=== PATIENT | male | born 1940 | race Caucasian/White ===

== ENCOUNTER → 2017-06-25 | Outpatient (CLI) | payer OTHER | LOC: RAD 10:49 | DX: J98.4 Other disorders of lung (principal); M25.78 Osteophyte, vertebrae; R09.89 Other specified symptoms and signs involving the circulatory and respiratory systems; Z87.81 Personal history of (healed) traumatic fracture ==

== ENCOUNTER → 2017-07-11 | Outpatient (CLI) | payer OTHER | LOC: RAD 12:09 | DX: R05 Cough (principal) ==

== ENCOUNTER → 2017-10-15 | Outpatient (CLI) | payer OTHER | LOC: RAD 15:20 | DX: M50.323 Other cervical disc degeneration at C6-C7 level (principal); M48.02 Spinal stenosis, cervical region; M85.88 Other specified disorders of bone density and structure, other site; G89.29 Other chronic pain ==

== ENCOUNTER → 2018-11-25 | Outpatient (CLI) | payer OTHER ==
--- NOTE | 2018-11-25 11:42 | 2DMMODE ---
[facility] [place] [place] [address] 2 D/M-MODE ECHOCARDIOGRAM Name: FRANTZ GOFF Room #: REG [facility]#: [id number] ������������� Admission: 11/25/18 ������������� Attend Phys: Taj Hutchinson, Discharge: ��� ������������� ��� Date of : 40 Date of Service: 11/25/18 1142 �� Report #: [id number] �������� ��������������������������������������������[id number] THIS REPORT FOR: //name// APPROVED REPORT Study performed: 11/25/2018 09:17:32 EXAM: Comprehensive 2D, Doppler, and color-flow Echocardiogram Patient Location: Echo lab Status: routine BSA: 2.37 HR: 62 bpm BP: 152/75 mmHg Rhythm: NSR Other Information Study Quality: Adequate Technically limited study due to body habitus. Indications Murmur Hypertension/HDD 2D Dimensions RVDd: 42.23 mm IVSd: 12.90 (7-11mm) LVOT Diam: 19.77 (18-24mm) LVDd: 48.50 mm PWd: 14.13 (7-11mm) Ascending Ao: 33.29 (22-36mm) LVDs: 34.49 (25-40mm) Aortic Root: 35.62 mm Volumes Left Atrial Volume (Systole) Single Plane 4CH: 64.64 mL Single Plane 2CH: 99.51 mL LA ESV Index: 39.00 mL/m2 Aortic Valve AoV Peak Benjamin.: 1.69 m/s AO Peak Gr.: 12.89 mmHg LVOT Max P.74 mmHg LVOT Max V: 1.09 m/s DOMI Vmax: 1.98 cm2 Mitral Valve [facility] [address] [place] [address] 2 D/M-MODE ECHOCARDIOGRAM Name: FRANTZ GOFF Room #: REG CL [facility]#: [id number] ������������� Admission: 11/25/18 ������������� Attend Phys: Taj Hutchinson, Discharge: ��� ������������� ��� Date of : 40 Date of Service: 11/25/18 1142 �� Report #: [id number] �������� ��������������������������������������������[id number] E/A Ratio: 0.8 MV Decel. Time: 257.36 ms MV E Max Benjamin.: 0.99 m/s MV A Benjamin.: 1.19 m/s MV PHT: 74.63 ms IVRT: 115.34 ms Pulmonary Valve PV Peak Benjamin.: 1.07 m/s PV Peak Gr.: 4.57 mmHg Pulmonary Vein P Vein S: 0.67 m/s P Vein A: 0.32 m/s P Vein D: 0.33 m/s P Vein A Dur.: 106.1 msec P Vein S/D Ratio: 2.03 Left Ventricle The left ventricle is normal size. Mild concentric left ventricular hypertrophy. The left ventricular systolic function is normal. The left ventricular ejection fraction is within the normal range. LVEF is 55%. Mild diastolic dysfunction is present (impaired relaxation pattern). Right Ventricle Right ventricle is mildly dilated. The right ventricular systolic function is normal. Atria Left atrium is at the upper limits of normal. Right atrium is mildly dilated. Aortic Valve Mild aortic valve sclerosis. Trace aortic regurgitation. There is no aortic valvular stenosis. Mitral Valve Mild mitral annular calcification. Mild mitral regurgitation. No evidence of mitral valve stenosis. Tricuspid Valve The tricuspid valve is normal in structure. Trace tricuspid regurgitation. Unable to assess PA pressure. Pulmonic Valve The pulmonary valve is normal in structure. Trace to mild pulmonic regurgitation. [facility] [place] [address] 2 D/M-MODE ECHOCARDIOGRAM Name: FRANTZ GOFF Room #: REG [facility]#: [id number] ������������� Admission: 11/25/18 ������������� Attend Phys: Taj Hutchinson, Discharge: ��� ������������� ��� Date of : 40 Date of Service: 11/25/18 1142 �� Report #: [id number] �������� ��������������������������������������������[id number] Great Vessels The aortic root is normal in size. IVC is not visualized. Pericardium There is no pericardial effusion. <Conclusion> The left ventricle is normal size. Mild concentric left ventricular hypertrophy. LVEF is 55%. Mild diastolic dysfunction is present (impaired relaxation pattern). Right ventricle is mildly dilated. Left atrium is at the upper limits of normal. Right atrium is mildly dilated. Mild aortic valve sclerosis. Trace aortic regurgitation. Mild mitral regurgitation. Trace tricuspid regurgitation. Unable to assess PA pressure. The aortic root is normal in size. There is no pericardial effusion. ��������������������������������������������� <ELECTRONICALLY SIGNED> ���������������������������������������� By: Boyd Dobson MD, FACC ��������������������������������������������� 11/25/18 1142 1142 1142 Boyd Dobson MD, FACC /INF
== END ==
LOC: CV 07:21
DX: I08.8 Other rheumatic multiple valve diseases (principal); I10 Essential (primary) hypertension; Z88.0 Allergy status to penicillin; Z88.2 Allergy status to sulfonamides; Z88.8 Allergy status to other drugs, medicaments and biological substances

== ENCOUNTER → 2019-07-07 | Outpatient (CLI) | payer OTHER | LOC: CAT 07:55 | DX: K63.5 Polyp of colon (principal); R63.4 Abnormal weight loss; R19.7 Diarrhea, unspecified; M47.816 Spondylosis without myelopathy or radiculopathy, lumbar region ==

== ENCOUNTER → 2019-08-19 | Outpatient (CLI) | payer OTHER ==
[~2019-08-19] MED LIST: ATORVASTATIN CA80 MG PO; BENICAR20 MG PO; CARBIDOPA-LEVO1 EAC9 PO; FLUTICASONE PRO30 G1 TOP; PROSCAR 5MG TABL5 M1 PO
== END ==
LOC: SJCVCIMAG 08-18 09:18 → NUC 08-18 10:29 → SJCVCIMAG 08-18 11:07
DX: Z01.818 Encounter for other preprocedural examination (principal); I73.9 Peripheral vascular disease, unspecified; R09.89 Other specified symptoms and signs involving the circulatory and respiratory systems; E78.00 Pure hypercholesterolemia, unspecified; E11.9 Type 2 diabetes mellitus without complications; E78.5 Hyperlipidemia, unspecified; Z82.49 Family history of ischemic heart disease and other diseases of the circulatory system; Z87.891 Personal history of nicotine dependence

== ENCOUNTER → 2019-08-21 | Outpatient (CLI) | payer OTHER | LOC: SJCVC 14:14 | DX: I25.10 Atherosclerotic heart disease of native coronary artery without angina pectoris (principal); I10 Essential (primary) hypertension; G20 Parkinson's disease; E11.9 Type 2 diabetes mellitus without complications; E78.00 Pure hypercholesterolemia, unspecified; G47.33 Obstructive sleep apnea (adult) (pediatric); Z79.899 Other long term (current) drug therapy; Z87.891 Personal history of nicotine dependence ==

== ENCOUNTER → 2019-08-22 | Outpatient (CLI) | payer OTHER ==
[~2019-08-22] VITALS: Ht 185.4 cm; Wt 103.0 kg
--- NOTE | ~2019-08-22 | EKG ---
[facility] [place] [address] ELECTROCARDIOGRAM REPORT Name: FRANTZ GOFF [id number] Admission: 08/22/19 Attend Phys: Eliceo Carbajal MD, Discharge: Date of : 40 Report #: [id number] THIS REPORT FOR: cc: Taj Hutchinson MD, Neal A. MD Epiphany, Epiphany MD ~ THIS REPORT FOR: //name// [facility] Test Date: 2019-08-22 Test Time: 07:28:15 Pat Name: FRANTZ GOFF Department: Room: Gender: Supervisor Records Change: Dorcas GRESHAM : 1940 Requested By: Boyd Dobson Order Number: [id number] MD: Measurements Intervals [place] Rate: 82 P: 37 MD: 168 QRS: 27 QRSD: 103 T: 90 QT: 377 QTc: 441 Interpretive Statements Sinus rhythm Atrial premature complex Inferior infarct, old Lateral leads are also involved Compared to ECG 05/05/2003 09:32:28 Atrial premature complex(es) now present Myocardial infarct finding now present T-wave abnormality no longer present [email or web address] By: D: 01/727 7 Epiphany Epiphany, /JAYCOB
[2019-08-22 07:26] VITALS: BP 131/62
[2019-08-22 07:30] LABS: HEMATOCRIT 40.6 % (42.0-52.0); HEMOGLOBIN 13.1 gm/dL (14.0-18.0); MCH 30.7 pg (26.0-34.0); MCHC 32.3 g/dL (28.0-37.0); RBC 4.27 mil/uL (4.50-6.00); RDW 13.9 % (10.5-14.5); WBC 11.4 thou/uL (4.0-11.0)
[2019-08-22 07:33] LABS: CALCIUM 8.9 mg/dL (8.5-10.1)
--- NOTE | 2019-08-22 08:57 | CATHLAB ---
[facility] [address] [place] [address] INVASIVE PROCEDURE REPORT Name: FRANTZ GOFF [facility]: [facility] [id number] Admission: 08/22/19 Attend Phys: Eliceo Carbajal MD, Discharge: Date of : 40 Report #: [id number] THIS REPORT FOR: cc: Taj Hutchinson MD, Neal A. MD Lundgren, Craig H. MD [facility] ~ THIS REPORT FOR: //name// APPROVED REPORT Study performed: 08/22/2019 07:31:15 Patient Details Patient Status: Out-Patient Room #: The patient is a 79 year-old male Event Personnel Eliceo Carbajal Helicopter Repairer, Iwona Vinson RN RN, Kalyn Conway RN RN, Berhane Maloney, Claudia Michel RTR, LOCAL GOVERNMENT LEGISLATOR Scrub Procedures Performed Left Heart Cath w/or w/o Coronaries [id number] [facility] Indication Chest pain Procedure Narrative The Right Groin^ was infiltrated with 1% Lidocaine subcutaneous anesthesia. A PINNACLE 6FR Sheath #[id number] sheath was inserted into the RFA^. Coronary angiography was performed using coronary diagnostic catheters. The right coronary system was accessed and visualized with a JR4 catheter. The left coronary system was accessed and visualized with a JL4 catheter. The left ventricle was accessed and visualized with a PIGTAIL catheter. Left ventricular/Aortic Valve gradient assessed via catheter pullback. Left ventriculogram was performed in 30 degree projection. Closure device was deployed with a 6 Fr MYNXGRIP 6/7F #[id number]. The patient tolerated the procedure well and there were no complications associated with the procedure. There was no hematoma. Intraoperative Conscious Sedation Sedation start time: 8.01 Case end Time: 8.22 [facility] [address] [place] [address] INVASIVE PROCEDURE REPORT Name: FRANTZ GOFF Room #: REG [facility]#: [id number] Admission: 08/22/19 Attend Phys: Eliceo Carbajal, Discharge: Date of : 40 Report #: [id number] Fentanyl 25 mcg Versed 1 mg Fluoro Time: 1.34 minutes Dose: DAP 4332.00 cGycm2 422 mGy Contrast Type and Amount: Omnipaque 125 ml Coronary Angiography The patient's coronary anatomy is right dominant. Diagnostic Cath Left Main Large, normal left main LAD Minimal proximal LAD plaquing Diagonal 1 Moderate size, single diagonal branch without disease Circumflex Large, nondominant circumflex OM1 Large first bifurcating marginal branch without significant plaquing OM2 Moderate size second marginal branch without significant stenosis Right Coronary Dominant right coronary with mild luminal irregularities. R PDA Moderately large posterior descending with minimal plaquing Left Ventriculography The left ventricle is normal in size with normal contractility. The left ventricular ejection fraction is estimated to be 60-65%. Left ventricular wall motion abnormalities are not present. There is no mitral insufficiency. Hemodynamics The aortic pressure is 141/63 mmHg with a mean of 90 mmHg. The left ventricular pressure is 124/6 mmHg with a mean of mmHg. The left ventricular end diastolic pressure is 18 mmHg. There was no gradient across the aortic valve upon pullback. Pullback from the left ventricle to the aorta revealed no gradient across the aortic valve. Conclusion 1. Normal global and regional left ventricular systolic function ejection fraction 65% 2. Normal left main 3. Minimal scattered atherosclerotic plaquing. Right coronary dominant circulation. [facility] [address] [place] [address] INVASIVE PROCEDURE REPORT Name: FRANTZ GOFF Room #: REG [facility]CLUDES [facility]#: [id number] Admission: 08/22/19 Attend Phys: Eliceo Carbajal, Discharge: Date of : 40 Report #: [id number] Recommendations Aggressive Medical Therapy <ELECTRONICALLY SIGNED> By: Eliceo Carbajal MD, FACC 08/22/19855 5 5 Eliceo Carbajal MD, FACC /INF
== END | disposition home or self-care (01) ==
LOC: CATH 06:51
PROVIDERS: Internal Medicine Cardiovascular Disease
DX: R07.9 Chest pain, unspecified (principal); I25.10 Atherosclerotic heart disease of native coronary artery without angina pectoris; I10 Essential (primary) hypertension; G20 Parkinson's disease; E11.9 Type 2 diabetes mellitus without complications; Z98.890 Other specified postprocedural states; Z79.899 Other long term (current) drug therapy; Z87.891 Personal history of nicotine dependence; Z88.0 Allergy status to penicillin; Z82.49 Family history of ischemic heart disease and other diseases of the circulatory system; Z88.2 Allergy status to sulfonamides

== ENCOUNTER → 2019-09-12 | Outpatient (CLI) | payer OTHER | LOC: CAT 09:53 | DX: K80.20 Calculus of gallbladder without cholecystitis without obstruction (principal); J90 Pleural effusion, not elsewhere classified; I25.10 Atherosclerotic heart disease of native coronary artery without angina pectoris; N40.0 Benign prostatic hyperplasia without lower urinary tract symptoms; Z98.890 Other specified postprocedural states ==

== ENCOUNTER → 2019-12-08 | Outpatient (CLI) | payer OTHER | LOC: MRI 09:32 | DX: K80.20 Calculus of gallbladder without cholecystitis without obstruction (principal); J90 Pleural effusion, not elsewhere classified; R63.4 Abnormal weight loss ==

== ENCOUNTER → 2019-12-11 | Outpatient (CLI) | payer OTHER | LOC: SJCVCIMAG 07:31 | PROVIDERS: ATTEND Internal Medicine Cardiovascular Disease | DX: I25.10 Atherosclerotic heart disease of native coronary artery without angina pectoris (principal); M79.605 Pain in left leg; M79.89 Other specified soft tissue disorders; I10 Essential (primary) hypertension; E78.00 Pure hypercholesterolemia, unspecified; E11.9 Type 2 diabetes mellitus without complications; G20 Parkinson's disease; Z79.899 Other long term (current) drug therapy; Z87.891 Personal history of nicotine dependence ==

== ENCOUNTER → 2020-06-15 | Outpatient (CLI) | payer OTHER | LOC: SJCVC 14:54 | PROVIDERS: ATTEND Internal Medicine Cardiovascular Disease | DX: R94.31 Abnormal electrocardiogram [ECG] [EKG] (principal); I49.9 Cardiac arrhythmia, unspecified; I25.10 Atherosclerotic heart disease of native coronary artery without angina pectoris; I10 Essential (primary) hypertension; E78.00 Pure hypercholesterolemia, unspecified; E11.9 Type 2 diabetes mellitus without complications; G20 Parkinson's disease; R09.89 Other specified symptoms and signs involving the circulatory and respiratory systems; Z79.82 Long term (current) use of aspirin; Z79.899 Other long term (current) drug therapy; Z87.891 Personal history of nicotine dependence ==

== ENCOUNTER 2020-10-24 10:45 | Observation (INO) | payer OTHER ==
[~2020-10-24] VITALS: Ht 185.4 cm; Wt 100.9 kg
[2020-10-24 10:51] VITALS: BP 171/74
[2020-10-24 13:11] LABS: ABSOLUTE NEUTROPHILS 8.2 thou/uL (1.4-8.2); BASOPHILS 0.2 % (0.0-2.0); EOSINOPHILS 0.1 % (0.0-3.0); HEMATOCRIT 37.2 % (42.0-52.0); HEMOGLOBIN 12.6 gm/dL (14.0-18.0); LYMPHOCYTES 5.6 % (24.0-44.0); MCH 32.5 pg (26.0-34.0); MCHC 33.8 g/dL (28.0-37.0); MCV 96.2 fL (80.0-100.0); PLATELET COUNT 191 thou/uL (150-400); POLYS 83.1 % (36.0-66.0); RBC 3.87 mil/uL (4.50-6.00); RDW 13.1 % (10.5-14.5); WBC 9.9 thou/uL (4.0-11.0)
[2020-10-24 13:26] LABS: ANION GAP 12 mmol/L (7-16); BUN 30 mg/dL (7-18); CALCIUM 8.9 mg/dL (8.5-10.1); CHLORIDE 108 mmol/L (98-107); CO2 23 mmol/L (21-32); CREATININE 1.3 mg/dL (0.7-1.3); GLUCOSE 109 mg/dL (74-106); POTASSIUM 5.2 mmol/L (3.5-5.1); SODIUM 143 mmol/L (136-145)
[2020-10-24 13:27] LABS: APTT 30.2 Seconds (24.5-32.8); INR 1.1; PROTIME 11.9 Seconds (9.3-11.4)
[2020-10-24] MEDS ORDERED: CLOBETASOL PROP15 G1 TOP (13:32)
[2020-10-24] MEDS ORDERED: PROTONIX40 M2 PO (13:32)
--- NOTE | 2020-10-24 13:34 | NUR ---
PT'S [facility]:[phone] CELL:[phone]
[2020-10-24 13:35] LABS: ALBUMIN 3.5 g/dL (3.4-5.0); SGOT 13 U/L (15-37); SGPT 9 U/L (16-63); TOTAL BILIRUBIN 0.8 mg/dL (0.2-1.0); TOTAL PROTEIN 6.8 g/dL (6.4-8.2); TROPONIN-I <0.06 ng/mL (<0.06)
[2020-10-24 13:42] VITALS: BP 171/74
[2020-10-24 14:35] VITALS: BP 119/65
[2020-10-24 14:49] VITALS: BP 170/78
--- NOTE | 2020-10-24 16:48 | NUR ---
PT ARRIVED TO FLOOR FROM ED AT 1449 IN STABLE CONDITION.ADMISSION HISTORY. ASSESSMENT AND CARE PLAN COMPLETED.DR CARDENAS NOTIFIED ABOUT PT ARRIVAL TO UNIT AND DIET ORDER RECEIVED.PT CALLED AND SECRET CODE GIVEN.PT VOIDED PER URINAL AND ENCOURAGED TO CALL FOR ASSISTANCE.NO VERBAL C/O BUT PT WANTED TO DC HOME IN AM IF POSSIBLE.WILL CONTINUE TO MONITOR.
[2020-10-24 19:39] VITALS: BP 129/68
--- NOTE | 2020-10-25 00:37 | NUR ---
PT WS OBSERVED LYING ON HIS BED ASLEEP AT SHIFT CHANGE.BUE BRUISING NOTED. SKIN TEAR NOTED TO HIS R ARM,CLEANED WITH SALINE,NEOSPRORIN OINTMENT APPLIED.URINAL AT BEDSIDE FOR ELIMINATION.PT ABLE TO MAKE HIS NEEDS KNOWN.CALL LIGHT WITHIN REACH.
--- NOTE | 2020-10-25 07:24 | EKG ---
[address] [address] ELECTROCARDIOGRAM REPORT Name: FRANTZ GOFF Room #: 450-[facility]..#: [id number] Admission: 10/24/20 Attend Phys: Taj Hutchinson MD Discharge: Date of : 40 Report #: [id number] [facility] [place] ED Test Date: 2020-10-24 Test Time: 13:01:13 Pat Name: FRANTZ GOFF Department: Room: [facility] Gender: Leather Stretcher: : 1940 Requested By: Dilan Rowland Order Number: [id number] MD: Shelton Pizarro Measurements Intervals [place] Rate: 73 P: 41 MS: 174 QRS: 43 QRSD: 99 T: 103 QT: 400 QTc: 441 Interpretive Statements Sinus rhythm Inferior infarct, old Lateral leads are also involved Compared to ECG 08/22/2019 07:28:15 Myocardial infarct finding now present Atrial premature complex(es) no longer present Electronically Signed On 10-25-2020 7:24:02 CDT by Shelton Pizarro [email or web address] <ELECTRONICALLY SIGNED> By: Shelton Pizarro MD, [facility] 10/25/20 0724 1301 1301 Shelton Pizarro MD, [facility] /EPI
[2020-10-25 08:30] VITALS: BP 158/79
--- NOTE | 2020-10-25 11:31 | NUR ---
WOUND CONSULT; SKIN TEARS IDENTIFIED TO THE RIGHT FORARM IS A CATAGORY 2 SKIN TEAR AND THE LEFT IS A CATAGORY 1 SKIN TEAR. THE LEFT FORARM SKIN TEAR WAS REAPPROXIMATED AND MARATHON SEALANT WAS USED, THE RIGHT WAS MUCH LARGER 10+ CM COULD NOT BE REAPPROXIMATED. RECOMMENDATION; -LOW AIR LOSS PUMP -XEROFORM GAUZE TO BILATERAL SKIN TEARS, COVER WITH XEROFORM,ABD,TUBIGRIP. DISCUSSED WITH RN
--- NOTE | 2020-10-25 11:31 | NUR ---
PT ADMITTED RELATED TO PNEUMOTHORAX,RIBS FRACTURE. CM REVIEWED CHART AND SPOKE WITH CARE TEAM. CM MET WITH PT AND SPOUSE AT BEDSIDE THIS DAY. PT APPEARED TO BE ALERT AND ORIENTED BUT HIS ANSWERED ALL ASSESSMENT QUESTIONS. PT'S SPOUSE INDICATED THEY RESIDE IN A HOUSE WITH 1 STEP TO ENTER AND 8 STEPS THAT PT USES TO THEIR UNFINISHED BASEMENT. 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 SPOUSE INDICATED PT [facility] HH [facility] A YEAR [facility]GO. SPOUSE INDICATED THEY MIGHT BE INTERESTED IN HH AGAIN UPON DC. CM ASKED ABOUT POSSIBLE POST ACUTE CARE STAY AND SPOUSE INIDCATED THEY LIKELY WOULDN'T BE INTERESTED IN THAT. PT TO HAVE REPEAT CHEST XRAY THIS DAY PT IS ON ROOM AIR AND THERAPY IS ORDERED. CM TO FOLLOW INDICATED WITH DC PLANNING.
[2020-10-25 15:55] VITALS: BP 158/79
[2020-10-25 16:03] VITALS: BP 158/79
[2020-10-25 16:05] VITALS: BP 155/73
--- NOTE | 2020-10-25 16:05 | NUR ---
PT INDICATING DESIRE TO DC HOME THIS DAY. PT SAW PT AND RECOMMENDED SHORT ACUTE REAHB STAY ON 5N AND RECOMMENDED CONSULT. SPOUE WAS RECEPTIVE BUT PT WAN'T AGREEABLE TO ASSESSMENT OF STAYING ANYWHERE FOR CONTINUED SERVICES ONLY AGREEABLE TO REHAB AT HOME. PHYSICIAN INDICATED PT SAFE TO DC HOME THIS DAY. REFERRAL AND ORDERS FAXED TO [facility]. PT HAS A FWW FOR HOME USE. PAIN MEDS CALLED INTO PT'S PHARMACY. SPOUSE TO PROVIDE TRANSPORT HOME. NO OTHER CM INTERVENTION INDICATED CASE CLOSED.
--- NOTE | 2020-10-25 19:46 | NUR ---
PT A&OX3-4, VSS, PAIN IN RIGHT RIBS. PER DOCTOR NO TELE NEEDED, CXR ORDERED. PATIENTS AT BEDSIDE. PATIENT ROOM AIR, NO SIGNS OF DISTRESS. PATIENT SEEN BY PT/OT. PATIENT SENT HOME WITH HOME HEALTH. PATIENT STATES HE HAS A PERSONAL WALKER AT HOME AND PATIENT DID NOT WANT TO GO TO A REHAB FACILITY. ALL BELONGINGS SENT WITH PATIENT. PATIENT DISCHARGED.
== END 2020-10-25 16:50 | disposition home or self-care (01) ==
LOC: ER 10:45 → EROBS 13:20 → 4W 14:42
PROVIDERS: Emergency Medicine; ADMIT Family Medicine; ATTEND Family Medicine
DX: J93.9 Pneumothorax, unspecified (principal); S22.41XA Multiple fractures of ribs, right side, initial encounter for closed fracture; G20 Parkinson's disease; G43.909 Migraine, unspecified, not intractable, without status migrainosus; I10 Essential (primary) hypertension; I25.10 Atherosclerotic heart disease of native coronary artery without angina pectoris; Z79.899 Other long term (current) drug therapy; W18.30XA Fall on same level, unspecified, initial encounter; Y93.89 Activity, other specified; Y92.89 Other specified places as the place of occurrence of the external cause; Z23 Encounter for immunization

== ENCOUNTER → 2021-01-10 | Outpatient (CLI) | payer OTHER ==
[~2021-01-10] MED LIST changes: +CLOBETASOL PROP15 G1 TOP; +PROTONIX40 M2 PO
== END ==
LOC: SJCVCIMAG 08:24
PROVIDERS: ATTEND Internal Medicine Cardiovascular Disease
DX: R94.31 Abnormal electrocardiogram [ECG] [EKG] (principal); I65.23 Occlusion and stenosis of bilateral carotid arteries; I25.10 Atherosclerotic heart disease of native coronary artery without angina pectoris; I77.9 Disorder of arteries and arterioles, unspecified; E78.00 Pure hypercholesterolemia, unspecified; I10 Essential (primary) hypertension; G20 Parkinson's disease; E11.9 Type 2 diabetes mellitus without complications; G47.33 Obstructive sleep apnea (adult) (pediatric); Z79.82 Long term (current) use of aspirin; Z79.899 Other long term (current) drug therapy; Z87.891 Personal history of nicotine dependence; Z72.89 Other problems related to lifestyle; Z88.0 Allergy status to penicillin; Z88.2 Allergy status to sulfonamides; Z88.1 Allergy status to other antibiotic agents

== ENCOUNTER → 2021-09-19 | Outpatient (CLI) | payer OTHER | LOC: ULTRA 12:58 | PROVIDERS: ATTEND Contractor | DX: L72.0 Epidermal cyst (principal); N50.89 Other specified disorders of the male genital organs; N49.2 Inflammatory disorders of scrotum ==